=== PATIENT | female | born 1970 | race African-American/Black ===

== ENCOUNTER 2021-11-25 03:39 | Emergency (ER) | payer BC, OTHER ==
[2021-11-25 03:57] VITALS: BP 156/84; PULSE 63; TEMP 98.2; BMI 28.5
[2021-11-25 05:17] LABS: INR 1.13 (0.83-1.09)
[2021-11-25 05:20] LABS: ACTIVATED PTT 39.3 SECONDS (25.2-36.5)
[2021-11-25 05:21] LABS: CALCIUM 9.6 mg/dL (8.5-10.1)
[2021-11-25 05:22] LABS: ALBUMIN 3.5 g/dl (3.4-5.0); BLOOD UREA NITROGEN 10.6 mg/dL (7-18)
[2021-11-25 05:26] LABS: BILIRUBIN,TOTAL 0.2 mg/dL (0.2-1); TOT PROT 6.9 g/dl (6.4-8.2)
[2021-11-25] MEDS ORDERED: SODIUM CHLORIDE 0.9% 500 ML INFUS.BAG IV ONE (05:38)
[2021-11-25 05:58] LABS: BASO % 2.5 % (0-2.0); EOS % 5.8 % (0-4.5); HEMATOCRIT 37.6 % (32.4-45.2); HEMOGLOBIN 11.8 GM/dL (10.7-15.3); LYMPH % 36.3 % (8-40); MCH 22.2 pg (25.7-33.7); MCHC 31.4 g/dl (32.0-36.0); MEAN CELL VOLUME 70.6 fl (80-96); MONO % 7.4 % (3.8-10.2); PLATELET COUNT 221 10^3/uL (134-434); RBC 5.32 M/mm3 (3.60-5.2); RDW 13.9 % (11.6-15.6)
== END 2021-11-25 06:56 | disposition home or self-care (01) ==
LOC: JER 03:39
DX: M54.6 Pain in thoracic spine (principal)
CPT/HCPCS: 36415; 71275-TC; 80053; 85025; 85610; 85730; 99284-25